=== PATIENT | female | born 2000 | race Caucasian/White ===

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

== ENCOUNTER 2018-12-31 07:03 | Outpatient (CLI) | payer BC ==
--- NOTE | 2018-12-31 08:18 | CT ---
NECK CT WITH IV CONTRAST: DATE: 12/31/2018. COMPARISON: None. HISTORY: Left-sided burning and numbness. TECHNIQUE: Axial CT imaging at 2 mm intervals through the neck with IV contrast. Coronal and sagittal reformatte d imaging obtained. FINDINGS: The imaged lung apices are unremarkable. The visualized paranasal sinuses and mastoid air cells are well aerated. The retroantral fat and parapharyngeal fat appears clear bilaterally. The parotid glands and submandibular glands appear unremarkable bilaterally. No aerodigestive tract lesion is apparent on this examination. Motion slightly limits assessment at t he level of the glottis. No lymphadenopathy is noted within the neck. The vascular structures appear patent. No acute osseous abnormality. IMPRESSION: No acute findings. Transcribed Date/Time: 12/31/2018 8:27 AM
--- NOTE | 2018-12-31 08:53 | ULT ---
THYROID ULTRASOUND: HISTORY: Thyroid goiter. COMPARISON: None. TECHNIQUE: Sagittal and transverse imaging of the thyroid gland is performed. FINDINGS: Thyroid isthmus measures 0.3 cm. The right thyroid lobe measures 4.6 x 1.3 x 1.2 cm. The left thyroid lobe measures 1.0 x 4.5 x 1.2 cm. There are no solid or cystic nodules throughout the thyroid gland. IMPRESSION: Unremarkable thyroid. POS: OFF
--- NOTE | 2018-12-31 09:29 | CT ---
CT HEAD WITH AND WITHOUT CONTRAST: Date: 12/31/18 INDICATION: Burning sensation left side. FINDINGS: There is no acute intracranial hemorrhage, mass effect, midline shift, or ventriculomegaly. No pathol ogic intra-axial enhancement. The imaged paranasal sinuses are clear. IMPRESSION: No acute intracranial abnormalities. POS: [facility]
== END 2018-12-31 07:04 | disposition home or self-care (01) ==
LOC: SCSULT 07:03
PROVIDERS: ATTEND Internal Medicine Endocrinology, Diabetes & Metabolism
DX: E07.9 Disorder of thyroid, unspecified (principal); R20.8 Other disturbances of skin sensation
CPT/HCPCS: 70470; 70491; 76536

== ENCOUNTER 2019-01-21 08:25 | Outpatient (CLI) | payer BC ==
--- NOTE | 2019-01-21 08:43 | RAD ---
EXAM: XR Scoliosis Study DATE: 01/21/2019 12:00 AM INDICATION: History of scoliosis COMPARISON: None. FINDING: There are 12 rib-bearing thoracic vertebra. There are 5 lumbar type vertebra. No congenital vertebral anomaly is evident. 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 There is 10 degrees of rightward curvature at T8. There is 18 degrees of leftward curvature at L2-3. The visualized lungs are clear. The bowel gas pattern is nonobstructed. No acute osseous abnormality is demonstrated. IMPRESSION:Mild levoscoliosis of the lumbar spine. Mild rightward curvature of the midthoracic spine.
== END 2019-01-21 08:26 | disposition home or self-care (01) ==
LOC: BICRAD 08:25
PROVIDERS: ATTEND Chiropractor
DX: M41.9 Scoliosis, unspecified (principal)
CPT/HCPCS: 72081